=== PATIENT | female | born 1980 | race Caucasian/White ===

== ENCOUNTER 2021-02-14 01:00 | Inpatient (IN) | payer OTHER ==
[~2021-02-14] VITALS: Ht 160 cm; Wt 88.9 kg
[2021-02-14] MEDS ORDERED: ACETAMINOPHEN 325MG TABLET PO ONE (01:30)
[2021-02-14] MEDS ORDERED: FENTANYL CITRATE/PF 50MCG/ML 2ML VIAL IV ONE (01:45)
[2021-02-14] MEDS ORDERED: ONDANSETRON HCL 4MG/2ML INJ IV ONE (01:45)
[2021-02-14] MEDS ORDERED: DEXT 5%/0.9% NACL 1,000 ML IV ONE (01:45)
[2021-02-14] MEDS ORDERED: ADENOSINE 3 MG/ML 2ML VIAL IV ONE ×2 (03:45→08:46)
[2021-02-14 03:54] LABS: BASOPHILS % 0.7 % (0.0-2.0); EOSINOPHILS % 0.8 % (0.0-5.0); HEMATOCRIT. 39.2 % (36.0-48.0); HEMOGLOBIN. 13.4 g/dL (12.0-16.0); LYMPHOCYTES % 26.7 % (20.0-50.0); MEAN CORPUSCULAR HEMOGLOBIN 31.9 pg (28.0-32.0); MEAN CORPUSCULAR VOLUME 93.4 fL (81.0-99.0); MEAN PLATELET VOLUME 8.9 fl (7.4-10.4); MONOCYTES % 4.1 % (2.0-8.0); NEUTROPHILS % 67.7 % (40.0-76.0); PLATELET 335 x1000/uL (130-400); RED BLOOD CELL COUNT 4.19 mill/uL (4.2-5.4); RED CELL DISTRIBUTION WIDTH 13.2 % (11.6-14.6)
[2021-02-14 03:59] LABS: CHLORIDE 106 mEq/L (98-107)
[2021-02-14] MEDS ORDERED: SODIUM CHLORIDE 0.9% 1,000 ML IV ONE (04:00)
[2021-02-14] MEDS ORDERED: LORAZEPAM 2MG/ML CPJ IV ONE (04:00)
[2021-02-14 04:03] LABS: ETHANOL BLOOD 137 mg/dL
[2021-02-14] MEDS ORDERED: KCL 20MEQ/100ML PREMIX 100 ML IV ONE (04:15)
[2021-02-14 05:11] LABS: *AMPHETAMINES SCREEN URINE NEGATIVE (NEGATIVE); CANNABINOID URINE SCREEN NEGATIVE (NEGATIVE); METHADONE URINE SCREEN NEGATIVE (NEGATIVE); OPIATES URINE SCREEN NEGATIVE (NEGATIVE); PHENCYCLIDINE URINE SCREEN NEGATIVE (NEGATIVE)
[2021-02-14 05:12] LABS: *BARBITURATES SCREEN URINE NEGATIVE (NEGATIVE); *BENZODIAZEPINES SCREEN URINE NEGATIVE (NEGATIVE); *COCAINE SCREEN URINE PRESUMTIVE POSITIVE (NEGATIVE)
[2021-02-14] MEDS ORDERED: ACETAMINOPHEN 325MG TABLET PO PRN (10:45)
[2021-02-14] MEDS ORDERED: ACETAMINOPHEN 650MG SUPP PR PRN (10:45)
[2021-02-14] MEDS ORDERED: NA PHOS,M-B/NA PHOS,DI-BA ENEMA 118ML PR PRN (10:45)
[2021-02-14] MEDS ORDERED: LORAZEPAM 0.5MG TABLET PO PRN (10:45)
[2021-02-14] MEDS ORDERED: GUAIFENESIN 200MG/10ML SUGAR FREE UDC PO PRN (10:45)
[2021-02-14] MEDS ORDERED: MAGNESIUM 2 G PREMIX 50 ML IV NR (10:45)
[2021-02-14] MEDS ORDERED: IPRATROPIUM/ALBUTEROL 0.5-3(2.5)MG/3ML NEB NEB PRN (10:45)
[2021-02-14] MEDS ORDERED: HYDROCODONE/ACETAMINOPHEN 5/325MG TABLET PO PRN (10:45)
[2021-02-14] MEDS ORDERED: CLONIDINE 0.1MG TABLET PO PRN (10:45)
[2021-02-14] MEDS ORDERED: DIPHENHYDRAMINE 50MG/ML VIAL IV PRN (10:45)
[2021-02-14] MEDS ORDERED: MAGNESIUM/ALUMINUM HYDROXIDE/SIMETHICONE 30ML UDC PO PRN (10:45)
[2021-02-14] MEDS ORDERED: DOCUSATE SODIUM 100MG CAPSULE PO PRN (10:45)
[2021-02-14] MEDS: ONDANSETRON HCL 4MG/2ML INJ IV PRN ×2 (11:16→15:17)
[2021-02-14] MEDS: MORPHINE SULFATE 2 MG/ML CPJ (NOT FOR IM USE) IV PRN ×3 (11:16→19:48)
[2021-02-14] MEDS ORDERED: CEFTRIAXONE 1 G PREMIX 50 ML IV SCH (11:30)
[2021-02-14] MEDS ORDERED: MVI, ADULT NO.1 10 ML, FOLIC ACID 1 MG, THIAMINE HCL 100 MG in SODIUM CHLORIDE 0.45% 1,... IV SCH (12:00)
[2021-02-14] MEDS: ENOXAPARIN 40MG/0.4ML SYR SUBCUT SCH (13:53)
[2021-02-14] MEDS: DILTIAZEM HCL 30MG TABLET PO SCH ×2 (13:53→18:30)
[2021-02-14 14:53] LABS: CLARITY URINE CLEAR (CLEAR); COLOR URINE YELLOW (YELLOW); KETONES URINE NEGATIVE (NEGATIVE); LEUKOCYTE ESTERASE URINE NEGATIVE (NEGATIVE); NITRITE URINE NEGATIVE (NEGATIVE); OCCULT BLOOD URINE NEGATIVE (NEGATIVE); PROTEIN URINE NEGATIVE (NEGATIVE); SPECIFIC GRAVITY URINE 1.005 (1.005-1.030); UROBILINOGEN URINE 0.2 E.U./dL (0.2-1.0)
[2021-02-14 16:01] LABS: HEMATOCRIT 37.6 % (36.0-48.0); HEMOGLOBIN 12.9 g/dL (12.0-16.0); MEAN CORPUSCULAR HEMOGLOBIN 31.8 pg (28.0-32.0); MEAN CORPUSCULAR VOLUME 92.9 fL (81.0-99.0); PLATELET 321 x1000/uL (130-400); RED BLOOD CELL COUNT 4.05 mill/uL (4.2-5.4); RED CELL DISTRIBUTION WIDTH 13.3 % (11.6-14.6)
[2021-02-14 16:11] LABS: CHLORIDE 106 mEq/L (98-107)
[2021-02-14 16:20] LABS: CREATINE KINASE 178 IU/L (26-192)
[2021-02-14 16:21] LABS: CREATINE KINASE MB FRACTION 1.4 ng/mL (0.5-3.6)
[2021-02-14 16:24] LABS: HCG SCREEN NEGATIVE
[2021-02-14] MEDS ORDERED: NALOXONE HCL 0.4MG/ML VIAL IV PRN (20:00)
[2021-02-14 20:50] VITALS: BP 126/75
[2021-02-14] MEDS ORDERED: FAMOTIDINE 20MG TABLET PO SCH (21:00)
[2021-02-14 23:26] LABS: CREATINE KINASE 161 IU/L (26-192)
[2021-02-14 23:27] LABS: CREATINE KINASE MB FRACTION < 1.0 ng/mL (0.5-3.6)
[2021-02-15] VITALS (7 sets, daily range): BP systolic 109–126; BP diastolic 68–76
[2021-02-15] MEDS: DILTIAZEM HCL 30MG TABLET PO SCH ×4 (00:27→18:42)
[2021-02-15 05:37] LABS: CHLORIDE 103 mEq/L (98-107)
[2021-02-15 05:46] LABS: HDL CHOLESTEROL 27 mg/dL (40-59); LDL CHOLESTEROL 216 mg/dL (5-100)
[2021-02-15 05:48] LABS: BASOPHILS % 0.5 % (0.0-2.0); HEMATOCRIT. 37.4 % (36.0-48.0); HEMOGLOBIN. 12.3 g/dL (12.0-16.0); LYMPHOCYTES % 29.5 % (20.0-50.0); MEAN CORPUSCULAR HEMOGLOBIN 30.9 pg (28.0-32.0); MEAN CORPUSCULAR VOLUME 93.7 fL (81.0-99.0); MEAN PLATELET VOLUME 9.8 fl (7.4-10.4); MONOCYTES % 6.3 % (2.0-8.0); NEUTROPHILS % 60.7 % (40.0-76.0); PLATELET 303 x1000/uL (130-400); RED BLOOD CELL COUNT 3.99 mill/uL (4.2-5.4); RED CELL DISTRIBUTION WIDTH 13.1 % (11.6-14.6)
[2021-02-15 06:07] LABS: HEPATITIS B SURFACE ANTIGEN NEGATIVE
[2021-02-15] MEDS: MORPHINE SULFATE 2 MG/ML CPJ (NOT FOR IM USE) IV PRN ×2 (06:15→11:11)
[2021-02-15 06:39] LABS: T4 FREE 1.02 ng/dL (0.76-1.46)
[2021-02-15] MEDS ORDERED: MAGNESIUM OXIDE 400MG TABLET PO SCH (09:00)
[2021-02-15] MEDS: ENOXAPARIN 40MG/0.4ML SYR SUBCUT SCH (09:31)
[2021-02-15] MEDS ORDERED: CEFTRIAXONE 1,000 MG in DEXTROSE 5% WATER 50 ML IV SCH (12:00)
[2021-02-15] MEDS ORDERED: DILT120C11 MT (13:14)
[2021-02-15] MEDS ORDERED: ONDA4TAB5 MT (13:14)
[2021-02-15] MEDS ORDERED: MAGN400T29 MT (13:14)
[2021-02-15] MEDS ORDERED: CHOL4PAC20 MT (13:14)
[2021-02-15] MEDS ORDERED: HYDR-4001 MT (13:14)
[2021-02-15] MEDS ORDERED: MVI, ADULT NO.1 10 ML, FOLIC ACID 1 MG, THIAMINE HCL 100 MG in SODIUM CHLORIDE 0.45% 1,... IV SCH (14:00)
[2021-02-15] MEDS ORDERED: CHOLESTYRAMINE/SUCROSE 4G POWDER PACKET PO SCH (17:50)
[2021-02-15] MEDS ORDERED: SODIUM CHLORIDE 0.45% 1,000 ML IV SCH (23:59)
== END 2021-02-15 21:00 | disposition home or self-care (01) | DRG 563 ==
LOC: ER 01:14 → MICUSO 04:38 → SUPCPDRO 10:59 → 6WST 19:52
PROVIDERS: ADMIT Internal Medicine; ATTEND Internal Medicine
PROC: 2W3LX1Z Immobilization of Right Lower Extremity using Splint (ICD-10-PCS; principal; 2021-02-14)
PROC: 5A2204Z Restoration of Cardiac Rhythm, Single (ICD-10-PCS; 2021-02-14)
DX: S82.431A Displaced oblique fracture of shaft of right fibula, initial encounter for closed fracture (principal); I47.1 Supraventricular tachycardia; D72.829 Elevated white blood cell count, unspecified; E83.42 Hypomagnesemia; E87.6 Hypokalemia; E11.65 Type 2 diabetes mellitus with hyperglycemia; R74.01 Elevation of levels of liver transaminase levels; F17.210 Nicotine dependence, cigarettes, uncomplicated; F10.129 Alcohol abuse with intoxication, unspecified; Y90.6 Blood alcohol level of 120-199 mg/100 ml; E78.5 Hyperlipidemia, unspecified; E66.9 Obesity, unspecified; W01.0XXA Fall on same level from slipping, tripping and stumbling without subsequent striking against object, initial encounter; Z20.822 Contact with and (suspected) exposure to COVID-19; E86.0 Dehydration; F14.10 Cocaine abuse, uncomplicated; I10 Essential (primary) hypertension; S82.51XA Displaced fracture of medial malleolus of right tibia, initial encounter for closed fracture; S92.101A Unspecified fracture of right talus, initial encounter for closed fracture; Y93.89 Activity, other specified; Y92.89 Other specified places as the place of occurrence of the external cause; Y99.8 Other external cause status; Z68.34 Body mass index [BMI] 34.0-34.9, adult
CPT/HCPCS: 36415; 71045; 73610; 73700; 80053; 80061; 80305; 80320; 81003; 82550; 82553; 83036; 83735; 83880; 84439; 84443; 84484; 84703; 85025; 85027; 86705; 86709; 86803; 86850; 86900; 87340; 87426; 93005; 93306; 93970; 99291; J0153; J0696; J1650; J2060; J2270; J2405; J3010; J3411; J3475; J3480; J3490; J7030; J7042; J7060; G0480